=== PATIENT | female | born 1990 | race Caucasian/White ===

== ENCOUNTER 2018-02-28 22:58 | Emergency (ER) | payer OTHER ==
[~2018-02-28] VITALS: Ht 154.9 cm; Wt 63.5 kg
[~2018-02-28 22:58] MED LIST: AMOXICILLIN875 MG PO; APAP500 PO; BIRTH CONTROL; CALCIUM CARBO1000 MG PO; CORTISPORIN OTI10 ML OTIC; DERMOPLAST SPRA56 ML TOP; HYDROCORTISON28.4 GM TOP; IBUPROFEN 600600 M1 PO; IBUPROFEN 800800 MG PO; LANOLIN56 GM TOP; NAPROSYN500 MG PO; NOHOMEMEDICATIONS; NORCO 5-325 TA1 EACH PO; OSELB75 PO; PHENERGAN 25 MG25 M1 PO; PRENATAL PO; TRAMADOL 50 MG50 MG PO; TRINESSA1 EACH PO; TUCKS MEDICATE1 EAC1 TOP; ZOFRAN 4 MG ORAL4 M1 DIS; ZOFRAN ODT4 M1 PO; ZOFRAN ODT4 MG PO
[2018-02-28 23:51] VITALS: BP 116/67
[2018-03-01] MEDS ORDERED: DOXYCYCLINE 10100 MG PO (00:04)
== END 2018-03-01 00:21 | disposition home or self-care (01) ==
LOC: ER 22:58
DX: L03.116 Cellulitis of left lower limb (principal); Z88.2 Allergy status to sulfonamides